=== PATIENT | male | born 1935 | race Caucasian/White ===

== ENCOUNTER 2019-04-28 14:13 | Emergency (ER) | payer MEDICARE ==
[~2019-04-28] VITALS: Ht 182.9 cm; Wt 100.0 kg
--- NOTE | 2019-04-28 14:20 | NUR ---
MEGGAN, MED STUDENT BS FOR EXAM
--- NOTE | 2019-04-28 14:26 | NUR ---
SPOUSE & GRANDSON NOW IN ROOM. PT DENIES CP CURRENTLY. A&OX4, RESP EVEN & UNLABORED, SPEECH CLEAR, SKIN WNL. CARDIAC & VS MONITORING EQUIPMENT APPLIED.
[2019-04-28] MEDS ORDERED: GLIP5TAB10 PO ×2 (14:37)
[2019-04-28] MEDS ORDERED: POTA10CA PO (14:43)
[2019-04-28] MEDS ORDERED: ALLO100T30 PO (14:43)
[2019-04-28] MEDS ORDERED: TRIA1TAB3 PO (14:43)
[2019-04-28] MEDS ORDERED: ALLO300T PO (14:43)
[2019-04-28] MEDS ORDERED: AMLO-150 PO (14:43)
[2019-04-28] MEDS ORDERED: METO25TA91 PO (14:43)
[2019-04-28] MEDS ORDERED: ASPI-496 PO (14:43)
[2019-04-28] MEDS ORDERED: ATOR40TA78 PO (14:43)
[2019-04-28] MEDS ORDERED: IRBESARTAN (14:44)
[2019-04-28 14:50] LABS: BASOPHILS # (AUTO) 0.01 x10^3/uL (0-0.1); BASOPHILS % (AUTO) 0 % (0-1); EOSINOPHILS % (AUTO) 2 % (1-7); LYMPHOCYTES # (AUTO) 1.06 x10^3/uL (1-3.4); LYMPHOCYTES % (AUTO) 17 % (22-44); MD NO; MEAN CORPUSCULAR HEMOGLOBIN 27.7 pg (27.5-34.5); MEAN CORPUSCULAR HGB CONC 32.9 g/dL (33.2-36.2); MEAN CORPUSCULAR VOLUME 84.2 fL (81-97); MEAN PLATELET VOLUME 8.6 fL (7.4-10.4); MONOCYTES # (AUTO) 0.56 x10^3/uL (0.2-0.8); MONOCYTES % (AUTO) 9 % (2-9); NEUTROPHILS # (AUTO) 4.37 x10^3/uL (1.8-6.8); NEUTROPHILS % (AUTO) 72 % (42-75); PLATELET COUNT 229 x10^3/uL (130-400); RED BLOOD COUNT 5.27 x10^6/uL (4.38-5.82); RED CELL DISTRIBUTION WIDTH 15.8 % (9.4-14.8)
[2019-04-28 14:58] LABS: ALANINE AMINOTRANSFERASE 32 U/L (12-78); ALBUMIN 3.3 g/dL (3.4-5.0); ANION GAP 7 mmol/L (5-15); CALCIUM 8.8 mg/dL (8.5-10.1); CHLORIDE 107 mmol/L (98-107); CREATININE 1.89 mg/dL (0.7-1.3)
[2019-04-28 15:02] LABS: ALKALINE PHOSPHATASE 65 U/L (45-117); BILIRUBIN,TOTAL 0.4 mg/dL (0.2-1.0); TOTAL PROTEIN 7.2 g/dL (6.4-8.2); TROPONIN I < 0.015 ng/mL (0.000-0.045)
[2019-04-28 15:21] VITALS: BP 137/68
== END 2019-04-28 18:15 | disposition home or self-care (01) ==
LOC: ED 17:37
DX: R07.89 Other chest pain (principal); I10 Essential (primary) hypertension; E11.9 Type 2 diabetes mellitus without complications; Z85.46 Personal history of malignant neoplasm of prostate; Z90.49 Acquired absence of other specified parts of digestive tract; Z87.891 Personal history of nicotine dependence
CPT/HCPCS: 36415; 71045; 80053; 84484; 85025; 93005; 99284